=== PATIENT | female | born 1970 | race Two or more races ===

== ENCOUNTER → 2018-10-18 | Emergency (ER) | payer BC ==
[~2018-10-18] VITALS: Ht 175.3 cm; Wt 77.1 kg
[~2018-10-18] MED LIST: ATIVAN0.5 MG PO; LEVOTHYROXINE88 MCG PO; PROZAC40 MG PO; WELLBUTRIN XL150 M1 PO
== END | disposition home or self-care (01) ==
LOC: ER 18:58
DX: S90.32XA Contusion of left foot, initial encounter (principal); S90.02XA Contusion of left ankle, initial encounter; W18.09XA Striking against other object with subsequent fall, initial encounter; Y93.89 Activity, other specified; Y92.098 Other place in other non-institutional residence as the place of occurrence of the external cause; Y99.8 Other external cause status